=== PATIENT | female | born 1990 | race Caucasian/White ===

== ENCOUNTER 2021-07-04 08:38 | Outpatient (CLI) | payer BC ==
[2021-07-04 17:47] LABS: SARS-CoV-2 PCR by NAA Not Detected (NotDetected)
== END 2021-07-04 08:39 | disposition home or self-care (01) ==
LOC: CSHLAB 08:38
PROVIDERS: ATTEND Student in an Organized Health Care Education/Training Program
DX: Z01.812 Encounter for preprocedural laboratory examination (principal); Z20.822 Contact with and (suspected) exposure to COVID-19
CPT/HCPCS: U0003; U0005

== ENCOUNTER 2021-07-06 20:14 | Inpatient (IN) | payer BC ==
[2021-07-06 20:54] VITALS: BMI 30.2
[2021-07-06] MEDS ORDERED: Carboprost 250 MCG/ML AMP IM PRN (21:44)
[2021-07-06] MEDS ORDERED: Ondansetron PF 4 MG/2 ML Vial IVP PRN ×2 (21:44→21:47)
[2021-07-06] MEDS ORDERED: Lidocaine 1% (PF) 30 ML VIAL SC PRN (21:44)
[2021-07-06] MEDS ORDERED: Diphenoxylate HCl/Atropine Tablet PO PRN (21:44)
[2021-07-06] MEDS ORDERED: Methylergonovine 0.2 MG/ML VIAL IM PRN (21:44)
[2021-07-06] MEDS ORDERED: HYDROcodone/Acetaminophen 5/325 mg Tablet PO PRN (21:44)
[2021-07-06] MEDS ORDERED: Misoprostol 200 MCG TAB PR PRN (21:44)
[2021-07-06] MEDS ORDERED: Promethazine HCl 25 MG/ML VIAL IM PRN ×2 (21:44→21:47)
[2021-07-06] MEDS ORDERED: hydrALAZINE 20 MG/ML VIAL SLOW IVP PRN ×2 (21:44→21:47)
[2021-07-06] MEDS ORDERED: Ibuprofen 800 MG TAB PO PRN (21:44)
[2021-07-06] MEDS ORDERED: Acetaminophen 500 MG TAB PO PRN (21:47)
[2021-07-06] MEDS ORDERED: Butorphanol Tartrate 1 MG/ML VIAL SLOW IVP PRN (21:47)
[2021-07-06] MEDS ORDERED: Zolpidem Tartrate 5 MG TAB PO PRN (21:47)
[2021-07-07 00:29] LABS: Hemoglobin 12.7 g/dL (12.0-15.5); Mean Corpuscular HGB CONC 33.3 g/dL (32.0-36.0); Mean Corpuscular Hemoglobin 31.1 pg (27.0-33.0); Mean Corpuscular Volume 93.2 fl (81.6-98.3); Mean Platelet Volume 11.2 fl (7.4-10.4); Platelet Count 184 10x3/uL (150-450); RBC Distribution Width 14.2 % (11.5-14.5); Red Blood Cell (RBC) Count 4.09 10x6/uL (3.90-5.03)
[2021-07-07 00:57] LABS: Hep B Surf Ag Non-Reactive S/CO (NonReactive); Syphilis Antibody Nonreactive (Nonreactive); Syphilis Antibody Index 0.05 S/CO (<1.00 Non-Reactive)
[2021-07-07 01:30] LABS: HBSAg Index 0.21 S/CO (0-0.99)
[2021-07-07] MEDS ORDERED: NS w/ Oxytocin 30 units 500 ML IVPB SCH (04:00)
[2021-07-07] MEDS: NS w/ Oxytocin 30 units 500 ML IV SCH ×2 (08:30→17:46)
[2021-07-07] MEDS: Lactated Ringer's 1,000 ML IV SCH ×3 (09:30→22:41)
[2021-07-07] MEDS ORDERED: Fentanyl 2 mcg/Bup 0.1% Cadd 100 ML ONE (12:22)
[2021-07-07] MEDS ORDERED: diphenhydrAMINE 25 MG CAP PO PRN (18:50)
[2021-07-07] MEDS ORDERED: HYDROcodone/Acetaminophen 5/325 mg Tablet PO PRN (18:50)
[2021-07-07] MEDS ORDERED: Milk Of Magnesia 30 ML UDCUP PO PRN (18:50)
[2021-07-07] MEDS ORDERED: Boostrix 0.5 ML (Tdap) VIAL IM ONE (18:50)
[2021-07-07] MEDS ORDERED: Lanolin Ointment 7 GM TUBE TOP PRN (18:50)
[2021-07-07] MEDS ORDERED: Promethazine HCl 25 MG/ML VIAL IM PRN (18:50)
[2021-07-07] MEDS ORDERED: Zolpidem Tartrate 5 MG TAB PO PRN (18:50)
[2021-07-07] MEDS ORDERED: hydrALAZINE 20 MG/ML VIAL SLOW IVP PRN (18:50)
[2021-07-07] MEDS ORDERED: Benzocaine-Menthol 82.5 ML CAN TOP PRN (18:50)
[2021-07-07] MEDS ORDERED: Bisacodyl 10 MG SUPP PR PRN (18:50)
[2021-07-07] MEDS ORDERED: Preparation H Ointment 28 GM TUBE PR PRN (18:50)
[2021-07-07] MEDS ORDERED: Ondansetron PF 4 MG/2 ML Vial IVP PRN (18:50)
[2021-07-07] MEDS: Docusate Calcium (SURFAK) 240 MG CAP PO SCH (19:47)
[2021-07-07] MEDS: HYDROcodone/Acetaminophen 5/325 mg Tablet PO PRN (19:47)
[2021-07-07] MEDS: Ibuprofen 800 MG TAB PO SCH (21:47)
[2021-07-08] MEDS: Ibuprofen 800 MG TAB PO SCH ×3 (05:00→21:37)
[2021-07-08] MEDS: HYDROcodone/Acetaminophen 5/325 mg Tablet PO PRN ×4 (05:00→21:38)
[2021-07-08] MEDS: Ferrous Sulfate 325 MG TAB PO SCH ×2 (07:38→17:13)
[2021-07-08] MEDS: Docusate Calcium (SURFAK) 240 MG CAP PO SCH ×2 (09:07→21:37)
[2021-07-09 07:43] VITALS: BP 123/77; TEMP 97.9
[2021-07-09] MEDS: Ferrous Sulfate 325 MG TAB PO SCH (08:16)
[2021-07-09] MEDS: Ibuprofen 800 MG TAB PO SCH (08:29)
[2021-07-09] MEDS: Docusate Calcium (SURFAK) 240 MG CAP PO SCH (08:30)
== END 2021-07-09 12:40 | disposition home or self-care (01) | DRG 806 ==
LOC: CSHLD 20:14 → CSHPP 07-07 18:40
PROVIDERS: ADMIT Student in an Organized Health Care Education/Training Program; ATTEND Student in an Organized Health Care Education/Training Program
PROC: 10E0XZZ Delivery of Products of Conception, External Approach (ICD-10-PCS; principal; 2021-07-07)
PROC: 3E033VJ Introduction of Other Hormone into Peripheral Vein, Percutaneous Approach (ICD-10-PCS; 2021-07-07)
DX: O99.284 Endocrine, nutritional and metabolic diseases complicating childbirth (principal); E72.12 Methylenetetrahydrofolate reductase deficiency; Z37.0 Single live birth; Z3A.37 37 weeks gestation of pregnancy
CPT/HCPCS: 85027; 86780; 86850; 86900; 86901; 87340; J2210; J2590; J7120; U0003; U0005